=== PATIENT | female | born 1940 | race African-American/Black ===

== ENCOUNTER 2017-05-19 09:44 | Observation (INO) | payer MEDICARE ==
[~2017-05-19] VITALS: Ht 167.6 cm; Wt 99.8 kg
[~2017-05-19 09:44] MED LIST: ALLOPURINOL300 MG PO; ASPIRIN325 MG PO; CALCIUM600 MG PO; GLIPIZIDE ER5 MG PO; LEVOTHYROXINE75 MCG PO; LISINOPRIL-HCT1 EAC1 PO; LOMOTIL TABLET1 EACH; METOPROLOL TART25 MG PO; OMEPRAZOLE40 MG PO
[2017-05-19] MEDS ORDERED: TRADJENTA5 MG PO (11:57)
[2017-05-19] MEDS ORDERED: ASPIR 8181 MG PO (11:59)
[2017-05-19] MEDS ORDERED: FERROUS SULFAT324 MG PO (11:59)
[2017-05-19] MEDS ORDERED: SODIUM CHLORIDE FLUSH 10 ML SYR INJ PRN ×2 (12:00→14:15)
--- OUTSIDE RECORDS SUMMARY | 2017-05-19 13:10 | XMS REPORT | Continuity of Care Document ---
Author Author [facility] Organization [facility] Address [address] [place] [address] Phone Unavailable Care Team Providers Care Needle Valve Operator Name Role Phone ALEX MANN MD PCP Advance Directives Directive Response Recorded Date/Time Does the patient have an advance directive? No 08/10/15 10:45am If yes, is advance directive on file with [facility]? No 05/19/17 10:38am If not on file with [facility] will patient provide a copy? No 08/10/15 10:45am Do you have a Directive to Physician? No 05/19/17 10:38am Do you have a Medical Power of Head Doffer? No 05/19/17 10:38am Do you have an out of hospital Do Not Resuscitate Order? No 05/19/17 10:38am Do you have any special needs we should be aware of? No 05/19/17 10:38am Do you have a support person here with you today? No 05/19/17 10:38am Did patient receive Notice of Privacy Practices? Yes 05/19/17 10:38am Did patient receive patient rights and responsibilities? Yes 05/19/17 10:38am Problems Medical Problem Onset Date Status Atrial fibrillation Unknown Chest pain Unknown Medications Current Home Medications Medication Dose Units Route Directions Days Qty Instructions Start Date Allopurinol 300 Mg Tablet 300 Mg Oral Daily 30 Tab Aspirin (Aspir 81) 81 Mg Tablet. 81 Mg Oral Daily Ferrous Sulfate 324 Mg Tablet. Unknown Dose Glipizide (Glipizide Er) 5 Mg Tab.er.24 5 Mg Oral Daily Levothyroxine Sodium 75 Mcg Tablet 75 Mcg Oral Daily 30 Tab Linagliptin (Tradjenta) 5 Mg Tablet Lisinopril/Hydrochlorothiazide (Lisinopril-Hctz 20-25 Mg Tab) 1 Each Tablet 1 Tab Oral Daily Metoprolol Tartrate 25 Mg Tablet 25 Mg Oral Twice A Day Omeprazole 40 Mg Capsule. 40 Mg Oral Daily Past Home Medications Medication Directions Ordered Status Aspirin 325 Mg Tablet, 325 Mg Oral Daily Discontinued Calcium Carbonate (Calcium) 600 Mg Tablet, 600 Mg Oral Twice A Day Discontinued Diphenoxylate Hcl/Atropine (Lomotil Tablet) 1 Each Tablet, Every 8 Hours for Diarrhea Discontinued Social History Smoking Status Start Date Stop Date Never Smoker Hospital Discharge Instructions No hospital discharge instruction information available. Plan of Care Discharge Date 05/19/17 12:45pm Disposition ADMITTED Condition at Discharge Stable Forms Provided Work/School Excuse Prescriptions See Medication Section Functional Status No functional status information available. Allergies, Adverse Reactions, Alerts Allergen Type Severity Reaction Status Last Updated Penicillin Allergy Unknown ITCHING Active 05/19/17 Immunizations No immunization information available. Vital Signs Acute Vital Signs Vital Response Date/Time Temperature (Fahrenheit) 97.8 degrees F (97.6 - 99.5) 05/19/2017 12:58pm Pulse Pulse Rate (adult) 68 bpm (60 - 90) 05/19/2017 12:58pm Respiratory Rate 16 bpm (12 - 24) 05/19/2017 12:58pm Blood Pressure 130/68 mm Hg 05/19/2017 12:58pm Height 5 ft 6 in 05/19/2017 9:50am Weight 220 lb 05/19/2017 9:50am Body Mass Index 35.5 kg/m^2 05/19/2017 9:50am Results No relevant diagnostic test, laboratory data and/or discharge summary information available. Procedures No procedure information available. Encounters Encounter Location Arrival/Admit Date Discharge/Depart Date Attending Provider Departed Emergency Room [facility] 05/19/17 9:44am 12:45pm DAMON QUIROZ MD
[2017-05-19 13:19] VITALS: BP 165/89
[2017-05-19 13:28] VITALS: BP 165/89
[2017-05-19] MEDS ORDERED: TRIMETHOPRIM/SULFAMETHOXAZOLE 160-800 MG TAB PO SCH ×2 (14:00→21:00)
[2017-05-19] MEDS ORDERED: TRIMETHOPRIM/SULFAMETHOXAZOLE 160-800 MG TAB PO ONE (15:00)
[2017-05-19 16:01] VITALS: BP 133/67
[2017-05-19] MEDS ORDERED: METOPROLOL TARTRATE 25 MG TAB PO SCH (17:00)
[2017-05-19] MEDS ORDERED: BACTRIM DS TAB1 EACH PO (17:19)
--- NOTE | 2017-05-19 17:23 | Discharge Summary ---
FINAL DIAGNOSES 1. Non-cardiac chest pain. 2. Urinary tract infection. 3. Chronic atrial fibrillation. 4. Hypertension. 5. Diabetes. 6. Hypothyroidism. 7. Chronic anemia. 8. Gout. CONSULTANTS: None. PROCEDURES/STUDIES PERFORMED: None. HISTORY: Per H\T\P. HOSPITAL COURSE: Workup is negative for cardiac chest pain. It sounds very atypical. To me, it sounds like a musculoskeletal pain. In addition, the patient stated that she just had a recent stress test with Dr. Worrell about 4-5 months ago. Therefore, I am going to send her home today. The patient is in agreement. The patient does have urinary frequency with abnormal urinalysis. Will send her home on 5 days of Bactrim. Lastly, the patient does not want anticoagulation for her chronic atrial fibrillation. I had a long conversation with her and asked her to follow up with her high pressure operator about this again. Potentially, she may be a candidate for Watchman device. CONDITION ON DISCHARGE: Stable. DISCHARGE MEDICATIONS: Please see medication reconciliation form. MEHNAZ BARONE M.D. Job#: [id number] GH
[2017-05-20] MEDS ORDERED: LEVOTHYROXINE SODIUM 75 MCG TAB PO SCH (06:00)
[2017-05-20] MEDS ORDERED: GLIPIZIDE 5 MG TAB ER PO SCH (08:00)
[2017-05-20] MEDS ORDERED: ASPIRIN 81 MG CHEW TAB PO SCH (09:00)
[2017-05-20] MEDS ORDERED: ALLOPURINOL 300 MG TAB PO SCH (09:00)
[2017-05-20] MEDS ORDERED: LISINOPRIL 20 MG TAB PO SCH (09:00)
[2017-05-20] MEDS ORDERED: HYDROCHLOROTHIAZIDE 25 MG TAB PO SCH (09:00)
== END 2017-05-19 18:53 | disposition home or self-care (01) ==
LOC: FSED 09:44 → MED/SURG 12:45 → FSED 12:45 → MED/SURG 13:06 → INTOOBSV 13:06
PROVIDERS: ADMIT Internal Medicine; ATTEND Internal Medicine
DX: R07.89 Other chest pain (principal); I10 Essential (primary) hypertension; I48.2 Chronic atrial fibrillation; N39.0 Urinary tract infection, site not specified; E11.9 Type 2 diabetes mellitus without complications; E03.9 Hypothyroidism, unspecified; D64.9 Anemia, unspecified; M1A.00X0 Idiopathic chronic gout, unspecified site, without tophus (tophi); Z82.49 Family history of ischemic heart disease and other diseases of the circulatory system
CPT/HCPCS: 36415; 71046; 80053; 81003; 82553; 82948; 83880; 84484; 85025; 87086; 87186; 93005; 99284; G0378

== ENCOUNTER 2017-05-23 12:03 | Inpatient (IN) | payer MEDICARE ==
[~2017-05-23] VITALS: Ht 167.6 cm; Wt 102.1 kg
[~2017-05-23 12:03] MED LIST changes: +ASPIR 8181 MG PO; +BACTRIM DS TAB1 EACH PO; +FERROUS SULFAT324 MG PO; +TRADJENTA5 MG PO
--- OUTSIDE RECORDS SUMMARY | 2017-05-23 12:06 | XMS REPORT | Continuity of Care Document ---
Author Author [facility] Organization [facility] Address [address] [place] [address] Phone Unavailable Care Team Providers Care Offset Printer Name Role Phone ALEX MANN MD PCP Advance Directives Directive Response Recorded Date/Time Does the patient have an advance directive? No 05/19/17 1:36pm If yes, is advance directive on file with [facility]? No 05/19/17 1:36pm If not on file with [facility] will patient provide a copy? No 05/19/17 1:36pm Do you have a Directive to Physician? No 05/19/17 10:38am Do you have a Medical Power of Straightening Press Operator Helper? No 05/19/17 10:38am Do you have an [...] 40 Mg Capsule. 40 Mg Oral Daily Sulfamethoxazole/Trimethoprim (Bactrim Ds Tablet) 1 Each Tablet 1 Tab Oral Twice A Day 60 Tab Past Home Medications Medication Directions Ordered Status Aspirin 325 Mg Tablet, 325 Mg Oral Daily Discontinued Calcium Carbonate (Calcium) 600 Mg Tablet, 600 Mg Oral Twice A Day Discontinued Diphenoxylate Hcl/Atropine (Lomotil Tablet) 1 Each Tablet, Every 8 Hours for Diarrhea Discontinued Social History Social History Problem Response Recorded Date/Time Onset Date Status Hx Psychiatric Problems No 05/19/2017 1:36pm Not Applicable Not Applicable Hx Eating Disorder No 05/19/2017 1:36pm Not Applicable Not Applicable Hx Substance Use Disorder No 05/19/2017 1:36pm Not Applicable Not Applicable Hx Depression No 05/19/2017 1:36pm Not Applicable Not Applicable Hx Alcohol Use No 05/19/2017 1:36pm Not Applicable Not Applicable Hx Substance Use Treatment No 05/19/2017 1:36pm Not Applicable Not Applicable Hx Physical Abuse No 05/19/2017 1:36pm Not Applicable Not Applicable Smoking Status Start Date Stop Date Former smoker Hospital Discharge Instructions No hospital discharge instruction information available. Plan of Care Discharge Date 05/19/17 6:53pm Disposition HOME, SELF-CARE Instructions/Education Provided Chest Pain - Noncardiac Urinary Tract Infection - Women Prescriptions See Medication Section Additional Instructions/Education ACTIVITY TOLERATED TAKE ALL ANTIBIOTICS UNTIL COMPLETED AND F/U WITH PCP Functional Status Query Response Date Recorded Assistive Devices None May 19, 2017 1:28pm Ambulation Ability Independent May 19, 2017 1:28pm Toileting Ability Independent May 19, 2017 6:13pm Allergies, Adverse Reactions, Alerts Allergen Type Severity Reaction Status Last Updated Penicillin Allergy Unknown ITCHING Active 05/19/17 Immunizations No immunization information available. Vital Signs Acute Vital Signs Vital Response Date/Time Temperature (Fahrenheit) 96.6 degrees F (97.6 - 99.5) 05/19/2017 4:01pm Pulse Pulse Rate (adult) 71 bpm (60 - 90) 05/19/2017 4:01pm Respiratory Rate 18 bpm (12 - 24) 05/19/2017 4:01pm Blood Pressure 133/67 mm Hg 05/19/2017 4:01pm Height 5 ft 6 in 05/19/2017 9:50am Weight 220 lb 05/19/2017 9:50am Body Mass Index 35.5 kg/m^2 05/19/2017 1:36pm Results Laboratory Results Test Name Result Units Flags Reference Collection Date/Time Result Date/ Time Comments Bedside Glucose 83 mg/dL 70-120 05/19/2017 1:18pm 05/19/2017 1:25pm Meter ID: [id number] Procedures No procedure information available. Encounters Encounter Location Arrival/Admit Date Discharge/Depart Date Attending Provider Discharged Inpatient (obs) [facility] 05/19/17 1:06pm 6:53pm MEHNAZ BARONE MD
[2017-05-23] MEDS ORDERED: SODIUM CHLORIDE 0.9% 1000ML 500 ML IV ONE (13:45)
[2017-05-23] MEDS: SODIUM CHLORIDE 0.9% 1000ML 1,000 ML IV SCH ×4 (14:18→23:03)
[2017-05-23] MEDS ORDERED: SODIUM CHLORIDE 0.9% 1000ML 1,000 ML IV SCH (14:30)
[2017-05-23] MEDS ORDERED: SODIUM CHLORIDE FLUSH 10 ML SYR INJ PRN (14:30)
--- OUTSIDE RECORDS SUMMARY | 2017-05-23 16:49 | XMS REPORT | Continuity of Care Document ---
Author Author [facility] Organization [facility] Address [address] [place] [address] Phone Unavailable Care Team Providers Care Stakes Player Name Role Phone ALEX MANN MD PCP Advance Directives Directive Response Recorded Date/Time Does the patient have an advance directive? No 05/19/17 1:36pm If yes, is advance directive on file with [facility]? No 05/19/17 1:36pm If not on file with [facility] will patient provide a copy? No 05/19/17 1:36pm Do you have a Directive to Physician? No 05/23/17 1:03pm Do you have a Medical Power of Mastic Floor Layer? No 05/23/17 1:03pm Do you have an out of hospital Do Not Resuscitate Order? No 05/23/17 1:03pm Do you have any special needs we should be aware of? No 05/23/17 1:03pm Do you have a support person here with you today? Yes 05/23/17 1:03pm Did patient receive Notice of Privacy Practices? Yes 05/23/17 1:03pm Did patient receive patient rights and responsibilities? Yes 05/23/17 1:03pm Problems Medical Problem Onset Date Status Acute renal failure Unknown Atrial fibrillation Unknown Chest pain Unknown Medications [...] Applicable Smoking Status Start Date Stop Date Never Smoker Hospital Discharge Instructions No hospital discharge instruction information available. Plan of Care Discharge Date 05/23/17 4:28pm Disposition ADMITTED Condition at Discharge Stable Forms [...] 05/19/2017 4:01pm Height 5 ft 6 in 05/23/2017 12:31pm Weight 220 lb 05/23/2017 12:31pm Body Mass Index 35.5 kg/m^2 05/23/2017 12:31pm Results Laboratory Results Test Name Result Units Flags Reference Collection Date/Time Result Date/ Time Comments Bedside Glucose 83 mg/dL 70-120 05/19/2017 1:18pm 05/19/2017 1:25pm Meter ID: [id number] Microbiology Results Procedure Source Organism/Result Collection Date/Time Result Date/Time Result Status Urine Culture Urine,Clean Catch ESCHERICHIA COLI 05/19/2017 11:45am 2017 7:09am Final Procedures No procedure information available. Encounters Encounter Location Arrival/Admit Date Discharge/Depart Date Attending Provider Registered Emergency Room [facility] 05/23/17 12:03pm REKHA RUBIO MD Discharged Inpatient (obs) [facility] 05/19/17 1:06pm 6:53pm MEHNAZ BARONE MD
[2017-05-23 17:22] VITALS: BP 108/71
[2017-05-23 17:47] VITALS: BP 108/71
--- NOTE | 2017-05-23 18:44 | Diagnostic Imaging Report ---
PROCEDURE:US RETROPERITONEAL ( KIDNEY ). COMPARISON:None. INDICATIONS:ARF TECHNIQUE: Brooks-scale and color sonographic images of the bilateral kidneys and bladder were obtained in transverse and longitudinal planes. FINDINGS: RIGHT KIDNEY: Measures 8.9 cm in length Cysts: None Solid masses: None Stones: None Hydronephrosis: None Echogenicity: Increased LEFT KIDNEY: Measures 9.0 cm in length Cysts: None Solid masses: None Stones: None Hydronephrosis: None Echogenicity: Increased Bladder: Normal. Ureteral jets were not visualized. Survey images of the liver and spleen demonstrate no focal abnormality. CONCLUSION: Increased renal echotexture consistent with medical renal disease. No renal mass or hydronephrosis. Dictated by: Ellen Zaldivar M.D. on 05/23/2017 at 18:44 Electronically approved by: Ellen Zaldivar M.D. on 05/23/2017 at 18:44
--- NOTE | 2017-05-23 18:57 | History and Physical ---
HISTORY OF PRESENT ILLNESS: She is a 77-year-old female with past medical history positive for hypertension, diabetes and obesity who came here with burning on urination and dizziness. She was found to have acute urinary tract infection, acute renal failure and orthostatic hypotension admitted to the hospital. REVIEW OF SYSTEMS: CARDIOVASCULAR: No chest pain or palpitation. RESPIRATORY: No shortness of breath. No cough. GASTROINTESTINAL: No nausea, no vomiting and no diarrhea. GENITOURINARY: No frequency. She had dysuria. ALLERGIES: PENICILLIN, APPARENTLY SHE HAD ALLERGIC REACTION TO BACTRIM. SOCIAL HISTORY: She does not smoke and she does not drink. PAST MEDICAL HISTORY: Positive for hypertension, diabetes and obesity. PHYSICAL EXAMINATION: HEART: Irregularly irregular heart rate. No murmurs. No extra sounds. LUNGS: Clear bilaterally. ABDOMEN: Soft, nondistended, no tenderness, no visceromegaly. EXTREMITIES: Show no evidence of cyanosis, edema or trauma. FINAL IMPRESSION 1. Acute renal insufficiency. 2. Urinary tract infection. 3. Orthostatic hypotension. 4. Diabetes mellitus type 2. 5. History of hypertension. 6. Obesity. PLAN OF TREATMENT: We are going to continue with normal saline. We are going to continue monitoring blood sugar a.c. and nightly. Continue rest of home medications except for the lisinopril hydrochlorothiazide due to the acute renal insufficiency and orthostatic hypotension. Patient going to be on diabetic renal diet. Will also order a renal ultrasound to evaluate the kidney signs and looking for any evidence of any anatomic abnormality. The patient will be, as I said, admitted to the hospital. We are going to repeat a BMP tomorrow. Continue monitoring blood sugar a.c. and nightly. Continue current medication regimen. Job#: [id number]
[2017-05-23 20:00] VITALS: BP 93/53
[2017-05-23] MEDS ORDERED: DIPHENHYDRAMINE HCL 30 GM TUBE TOP PRN (20:30)
[2017-05-23 20:35] VITALS: BP 93/53
[2017-05-23] MEDS ORDERED: ACETAMINOPHEN 325 MG TAB PO PRN (20:45)
[2017-05-23] MEDS ORDERED: SODIUM CHLORIDE 0.9% 1000ML 1,000 ML ONE (23:03)
[2017-05-24 01:10] VITALS: BP 88/44
[2017-05-24] MEDS: SODIUM CHLORIDE 0.9% 1000ML 1,000 ML IV SCH ×5 (04:36→22:30)
[2017-05-24 04:57] VITALS: BP 70/38
[2017-05-24] MEDS: LEVOTHYROXINE SODIUM 75 MCG TAB PO SCH (05:33)
[2017-05-24 05:40] VITALS: BP 110/66
[2017-05-24] MEDS ORDERED: SODIUM CHLORIDE 0.9% 1000ML 1,000 ML ONE ×2 (05:59→13:47)
[2017-05-24 07:08] LABS: ANION GAP 9.6 mmol/L (8-16); CALCIUM 8.3 mg/dL (8.4-10.2); CREATININE, SERUM 2.34 mg/dL (0.57-1.11); POTASSIUM 3.6 mmol/L (3.5-5.1)
[2017-05-24 08:00] VITALS: BP 92/48
[2017-05-24] MEDS ORDERED: LEVOTHYROXINE SODIUM 75 MCG TAB PO SCH (09:00)
[2017-05-24] MEDS: METOPROLOL TARTRATE 25 MG TAB PO SCH ×2 (09:00→16:09)
[2017-05-24] MEDS: TRADJENTA 5 MG PO SCH (09:00)
[2017-05-24] MEDS ORDERED: GLIPIZIDE 5 MG TAB ER PO SCH (09:00)
[2017-05-24] MEDS ORDERED: NON-FORMULARY MEDICATION (Linagliptin (Tradjenta) 5 MG) PO SCH (09:00)
[2017-05-24] MEDS: ASPIRIN 81 MG CHEW TAB PO SCH (09:15)
[2017-05-24] MEDS: FERROUS SULFATE 325 MG TAB PO SCH (09:15)
[2017-05-24] MEDS: PANTOPRAZOLE SOD 40 MG TABEC PO SCH (09:16)
[2017-05-24] MEDS: ALLOPURINOL 300 MG TAB PO SCH (09:50)
[2017-05-24 12:00] VITALS: BP 94/46
[2017-05-24 15:36] LABS: EOSINOPHILS # (AUTO) 0.6 (0.0-0.4); EOSINOPHILS % 15.4 % (0.0-6.0); HEMATOCRIT 30.8 % (34.2-44.1); HEMOGLOBIN 10.4 g/dL (12.0-16.0); LYMPHOCYTES # (AUTO) 1.2 (1.0-3.2); LYMPHOCYTES % 33.6 % (18.0-39.1); MEAN CORPUSCULAR HGB CONC 33.8 g/dL (31-35); MEAN CORPUSCULAR VOLUME 91.9 fL (81-99); MONOCYTES # (AUTO) 0.4 (0.2-0.8); MONOCYTES % 10.6 % (4.4-11.3); NEUTROPHILS # (AUTO) 1.5 (2.1-6.9); NEUTROPHILS % 40.1 % (38.7-80.0); PLATELET COUNT 146 x10e3/uL (140-360); RED BLOOD COUNT 3.35 x10e6/uL (3.6-5.1); RED CELL DISTRIBUTION WIDTH 14.1 % (11.7-14.4)
[2017-05-24 16:40] LABS: HIV 1&2 AB SCREEN NON-REACTIVE (NONREACTIVE)
[2017-05-24 17:07] LABS: EOSINOPHILS % (MANUAL) 6 % (0-7); HYPOCHROMASIA SLIGHT; LYMPHOCYTES % (MANUAL) 19 % (19-48); METAMYELOCYTES % (MANUAL) 1 % (0-0); MONOCYTES % (MANUAL) 13 % (3.4-9.0); NEUTROPHILS % (MANUAL) 58 % (40-74); PLATELET ESTIMATE ADEQUATE; PLATELET MORPHOLOGY COMMENT NORMAL; RBC MORPHOLOGY COMMENT NORMAL; TOXIC GRANULATION MODERATE
[2017-05-24 17:27] LABS: BLOOD UREA NITROGEN 41 mg/dL (7-26); GLUCOSE 96 mg/dL (74-118); OSMOLALITY,SERUM 273 mOsm/kg (278-305); SODIUM 131 mmol/L (136-145)
--- NOTE | 2017-05-24 18:08 | Consultation ---
DATE OF CONSULTATION: May 24, 2017 NEPHROLOGY CONSULT REASON FOR THE CONSULT: Acute kidney injury. HISTORY OF PRESENT ILLNESS: This is a pleasant 77-year-old female who is known to have hypertension, diabetes on p.o. medications, and she is known to have hypothyroid and gout on allopurinol. She recently changed her insurance, and she went to a new doctor in the area, for which she was prescribed metoprolol. She recently has been having frequency with urine along with some dysuria and urgency. She went to an urgent care across the street, and they prescribed for her Bactrim 1 tablet twice a day, which she took for 3 days, and the [id number] said that the patient is becoming a little bit confused with that. So, they stopped the antibiotic. She is becoming dizzy and lightheaded with orthostasis; so, she came for further evaluation in the ER, in which her blood pressure was low in 70s/30s. The patient is being admitted. Blood pressure medications have been on hold, and we are consulted given creatinine was elevated. Today the patient is feeling fine. She has been on IV fluids and she is tolerating her diet and making some urine. VITAL SIGNS: Blood pressure 110/56, heart rate is 70, temperature is 97. PHYSICAL EXAMINATION GENERAL APPEARANCE: No acute distress x3. HEAD, EARS, EYES, NECK: No lymphadenopathy. HEART: Regular rate and rhythm. LUNGS: Good bilateral air entry. ABDOMEN: Soft. Nontender. EXTREMITIES: No edema. LABS: She had sodium 129, potassium 3.6, BUN is 44, creatinine is 2.34, and calcium is 8.3. Hemoglobin is 10.4. Ultrasound with increased echogenicity in bilateral kidneys. ASSESSMENT AND PLAN 1. Acute kidney injury. This could be suspected in the setting of urinary tract infection along with hypotension and decrease in blood pressure impacting renal perfusion. At this time keep IV fluids and rehydration. Check fraction excretion of sodium. Avoid any nephrotoxins. Monitor urine output. Also note that the patient has recently UTI and has been started on Bactrim, which could have led to more renal failure. So, I do not have the baseline for the kidney function. However, I am going to contact the new clinic that she moved to recently as the patient says that she had labs almost a couple of months ago to check her baseline kidney function at that time and monitor her kidney function. At this time keep IV fluids. No NSAIDs and no nephrotoxins. 2. Electrolytes. Potassium is okay. Sodium is 129. She is on isotonic IV fluids. Check TSH and check urine osmo and serum osmolality. 3. Hypotension. Patient recently started on metoprolol. She is being admitted with sepsis for UTI. We are going to hold lisinopril-hydrochlorothiazide given CATRACHO and monitor her blood pressure and vital signs and orthostasis. 4. Diabetes, borderline. She is on p.o. hypoglycemics by her primary team. 5. Urinary tract infection. Urine culture has been sent, and we are going to monitor closely off the Bactrim as it caused side effects for the patient. 6. Gout, on allopurinol. Check uric acid. 7. Hypothyroid, on levothyroxine. Check TSH. Thank you for the consult. Job#: [id number]
[2017-05-24 18:59] LABS: CREATININE,URINE RANDOM 38.94 mg/dL (47-110); SODIUM,URINE 86 mmol/L; TOTAL PROTEIN, URINE 10.1 mg/dL (1-14)
[2017-05-24 19:40] LABS: EOSINOPHIL SMEAR,URINE NONE SEEN (NONE SEEN)
[2017-05-24 20:00] VITALS: BP_SYST 112; BP_SYST 96; BP_DIAS 55; BP_DIAS 65
--- NOTE | 2017-05-24 20:13 | Progress Note ---
DATE: May 24, 2017 INTERNAL MEDICINE PROGRESS NOTE SUBJECTIVE: She is doing better today. PHYSICAL EXAM: VITAL SIGNS: Blood pressure 94/46, temperature 97 degrees. Heart rate 79 per minute. Respiratory rate 18 per minute. Oxygen saturation 99%. HEART: Regular rhythm. No murmurs and no extra sounds. LUNGS: Clear bilaterally. ABDOMEN: Soft. EXTREMITIES: Show no evidence of cyanosis, edema or trauma. On the BMP sodium 131, potassium 3.6, chloride 102, CO2 21, BUN 41, creatinine 2.34. Glucose 96. On the CBC white blood count 3.69, hemoglobin 10.4, hematocrit 30.8, platelet count 146,000. FINAL IMPRESSION: 1. Urinary tract infection. 2. Ojzxv-ds-pewagkk renal insufficiency. 3. Orthostatic hypotension. 4. Diabetes mellitus type 2 with chronic renal failure. 5. Hypertension with hypertensive nephropathy. 6. Obesity. PLAN OF TREATMENT: Continue with IV fluids at 140 mL an hour. Continue with allopurinol 300 mg daily. Aspirin 81 mg daily. Levothyroxine 75 mcg daily. Sodium bicarbonate 350 mg twice a day. Ferrous sulfate 325 mg daily. Continue Protonix 40 mg daily. Continue the Tylenol 650 mg q.4 h. as needed. Metoprolol 25 mg twice a day. Benadryl Cream, one application q.6 h. as needed. We are going to continue with Levaquin 250 mg IV daily. We are waiting on the report on the UA urine culture. Job#: [id number]
[2017-05-24] MEDS: LEVOFLOXACIN 250MG/D5W 50ML 50 ML IV SCH (22:30)
[2017-05-25] VITALS: BP 96/55
[2017-05-25] MEDS: SODIUM CHLORIDE 0.9% 1000ML 1,000 ML IV SCH ×3 (02:03→14:21)
[2017-05-25] MEDS: LEVOTHYROXINE SODIUM 75 MCG TAB PO SCH (05:39)
[2017-05-25 06:56] LABS: BASOPHILS % 0.3 % (0.0-1.0); EOSINOPHILS # (AUTO) 0.4 (0.0-0.4); EOSINOPHILS % 11.5 % (0.0-6.0); HEMATOCRIT 27.3 % (34.2-44.1); HEMOGLOBIN 9.1 g/dL (12.0-16.0); LYMPHOCYTES # (AUTO) 1.6 (1.0-3.2); LYMPHOCYTES % 42.4 % (18.0-39.1); MEAN CORPUSCULAR HEMOGLOBIN 31.2 pg (28-32); MEAN CORPUSCULAR HGB CONC 33.3 g/dL (31-35); MEAN CORPUSCULAR VOLUME 93.5 fL (81-99); MONOCYTES # (AUTO) 0.4 (0.2-0.8); MONOCYTES % 9.7 % (4.4-11.3); NEUTROPHILS # (AUTO) 1.4 (2.1-6.9); NEUTROPHILS % 35.6 % (38.7-80.0); PLATELET COUNT 138 x10e3/uL (140-360); RED BLOOD COUNT 2.92 x10e6/uL (3.6-5.1)
[2017-05-25 07:23] LABS: CALCIUM 8.4 mg/dL (8.4-10.2); CREATININE, SERUM 1.43 mg/dL (0.57-1.11); PHOSPHORUS 2.9 MG/DL (2.3-4.7)
[2017-05-25 07:39] LABS: MAGNESIUM 1.3 MG/DL (1.3-2.1)
[2017-05-25 08:00] VITALS: BP 116/60
[2017-05-25 08:28] LABS: BAND NEUTROPHILS % (MANUAL) 3 %; BLAST CELLS % MANUAL 3; EOSINOPHILS % (MANUAL) 15 % (0-7); LYMPHOCYTES % (MANUAL) 28 % (19-48); MONOCYTES % (MANUAL) 13 % (3.4-9.0); NEUTROPHILS % (MANUAL) 33 % (40-74)
[2017-05-25 08:29] LABS: ANISOCYTOSIS SLIGHT; HYPOCHROMASIA SLIGHT; PLATELET ESTIMATE SLIGHTLY DECREASED; PLATELET MORPHOLOGY COMMENT MANY LARGE; RBC MORPHOLOGY COMMENT NORMAL
[2017-05-25 08:45] VITALS: BP 116/60
[2017-05-25] MEDS: TRADJENTA 5 MG PO SCH (09:00)
[2017-05-25] MEDS: METOPROLOL TARTRATE 25 MG TAB PO SCH ×2 (09:00→16:41)
[2017-05-25] MEDS: PANTOPRAZOLE SOD 40 MG TABEC PO SCH (09:11)
[2017-05-25] MEDS: ASPIRIN 81 MG CHEW TAB PO SCH (09:11)
[2017-05-25] MEDS: ALLOPURINOL 300 MG TAB PO SCH (09:11)
[2017-05-25] MEDS: SODIUM BICARBONATE 650 MG TAB PO SCH ×2 (09:11→16:40)
[2017-05-25] MEDS: FERROUS SULFATE 325 MG TAB PO SCH (09:11)
[2017-05-25 12:00] VITALS: BP 114/70
[2017-05-25 16:00] VITALS: BP 120/75
[2017-05-25] MEDS: LEVOFLOXACIN 250MG/D5W 50ML 50 ML IV SCH (20:21)
--- NOTE | 2017-05-26 05:48 | Discharge Summary ---
HOSPITAL COURSE: A 77-year-old female, past medical history positive for hypertension, diabetes, hypothyroidism, gout also. She was having frequency on urination with some burning urination, went to a nursing care. She was prescribed Bactrim. She was becoming confused. She started on antibiotics. She was dizzy and lightheaded with orthostatics, came for further evaluation in the ER. The blood pressure was in the low 70s and 30s. She was admitted to the hospital. So far, patient was started on Levaquin IV, IV fluids. The blood pressure is much better right now. Patient's urine culture is negative. BUN and creatinine were elevated, now they are down to 32 of BUN and creatinine 1.43. Patient's asymptomatic, working around the facility. She is going home tomorrow. PHYSICAL EXAM HEART: Regular rhythm. Normal S1, S2 sounds. LUNGS: Clear bilaterally. ABDOMEN: Soft. EXTREMITIES: No evidence of cyanosis or trauma. VITALS: Blood pressure 121/75, temperature 96.7, heart rate 67 per minute, respiratory rate is 18 per minute. On the BMP, sodium 136, potassium 4.0, chloride 108, CO2 22, BUN 32, creatinine 1.43. Glucose 73. On the CBC, white blood count 3.82, hemoglobin 9.1, hematocrit 27.3, platelet count 138,000. IMPRESSIONS 1. Orthostatic hypotension. 2. Urinary tract infection. 3. Acnai-ph-pzwmdoq renal insufficiency. 4. Status post hypotension. 5. Hypothyroidism. 6. Obesity. 7. Hypertensive nephropathy. PLAN OF TREATMENT: Patient going to be discharged home with 1. Allopurinol 300 mg daily. 2. Metoprolol 25 mg twice a day. 3. Aspirin 81 mg daily. 4. Levothyroxine 75 mcg daily. 5. Ferrous sulfate 325 mg daily. 6. Protonix 40 mg daily. 7. Tylenol 650 mg q.4 h as needed. Follow up with me in a week. KAYA GORMAN MD Job#: [id number] CQ
[2017-05-26] MEDS: LEVOTHYROXINE SODIUM 75 MCG TAB PO SCH (06:13)
[2017-05-26 06:15] VITALS: BP 120/75
[2017-05-26 07:19] LABS: CALCIUM 8.6 mg/dL (8.4-10.2); CREATININE, SERUM 1.11 mg/dL (0.57-1.11); PHOSPHORUS 2.9 MG/DL (2.3-4.7)
[2017-05-26 07:52] LABS: MAGNESIUM 1.1 MG/DL (1.3-2.1)
[2017-05-26 08:00] VITALS: BP 108/55
[2017-05-26] MEDS: METOPROLOL TARTRATE 25 MG TAB PO SCH (08:40)
[2017-05-26] MEDS: TRADJENTA 5 MG PO SCH (09:00)
[2017-05-26] MEDS: MAGNESIUM SULF 1GRAM/DEXTROSE 100 ML IV SCH ×4 (09:00→11:30)
[2017-05-26] MEDS: ASPIRIN 81 MG CHEW TAB PO SCH (11:09)
[2017-05-26] MEDS: FERROUS SULFATE 325 MG TAB PO SCH (11:09)
[2017-05-26] MEDS: PANTOPRAZOLE SOD 40 MG TABEC PO SCH (11:09)
[2017-05-26] MEDS: ALLOPURINOL 300 MG TAB PO SCH (11:09)
[2017-05-26 12:00] VITALS: BP 126/76
[2017-05-26 16:00] VITALS: BP 164/90
[2017-05-26] MEDS ORDERED: METOPROLOL TARTRATE 25 MG TAB PO SCH (17:00)
--- NOTE | 2017-05-26 21:10 | Discharge Summary ---
HISTORY OF PRESENT ILLNESS: Patient is a 77-year-old female, past medical history positive for hypertension diabetes came here with acute renal insufficiency and possible UTI. He received a course of IV antibiotic, IV fluids. BUN and creatinine improved. She was found to have also hypomagnesemia. The magnesium was replaced. Magnesium level followup was 2.2. Magnesium level was 1.1 before the magnesium replacement, so 2.2 is back to normal. Patient going home today. FINAL IMPRESSIONS 1. Acute renal failure and chronic renal failure. 2. Urinary tract infection. 3. Hypertension. 4. Diabetes mellitus, type 2, with renal insufficiency. Patient going home today with the medication. KAYA GORMAN MD Job#: [id number] CQ
== END 2017-05-26 17:43 | disposition left against medical advice (07) | DRG 872 ==
LOC: ER 12:03 → FSED 16:28 → MED/SURG2 16:46
PROVIDERS: ADMIT Internal Medicine; ATTEND Internal Medicine
DX: A41.9 Sepsis, unspecified organism (principal); N17.9 Acute kidney failure, unspecified; N39.0 Urinary tract infection, site not specified; E11.22 Type 2 diabetes mellitus with diabetic chronic kidney disease; I12.9 Hypertensive chronic kidney disease with stage 1 through stage 4 chronic kidney disease, or unspecified chronic kidney disease; N18.9 Chronic kidney disease, unspecified; E03.9 Hypothyroidism, unspecified; R35.0 Frequency of micturition; E87.6 Hypokalemia; R65.20 Severe sepsis without septic shock; M10.9 Gout, unspecified; E66.9 Obesity, unspecified; Z68.36 Body mass index [BMI] 36.0-36.9, adult; Z87.891 Personal history of nicotine dependence; Z79.52 Long term (current) use of systemic steroids
CPT/HCPCS: 36415; 76770; 80048; 81015; 82533; 82570; 82947; 82948; 83735; 83935; 84100; 84156; 84295; 84300; 84443; 84520; 84550; 85025; 87086; 87390; 99283; G0433; G0435; J1956; J3475; J7030

== ENCOUNTER 2018-09-14 10:57 | Emergency (ER) | payer MEDICARE ==
[~2018-09-14] VITALS: Ht 167.6 cm; Wt 106.4 kg
--- OUTSIDE RECORDS SUMMARY | 2018-09-14 11:01 | XMS REPORT ---
Author Author [facility] Address Unknown Phone Unavailable Care Team Providers Care Green Building Energy Engineer Name Role Phone KAYA GORMAN Unavailable Unavailable Problems This patient has no known problems. Allergies, Adverse Reactions, Alerts This patient has no known allergies or adverse reactions. Medications This patient has no known medications. Results Test Description Test Time Test Comments Text Results Atomic Results Result Comments US RENAL RETROPERITONEAL COMP [place] [address] Patient Name: JULIUS ULLOA MR #: [id number] : 1940 Age/Sex: 77/F Req #: [id number] [facility] Physician: KAYA GORMAN MD Ordered by: REKHA RUBIO MD Report #: [id number] Location: MED/SURG2 Room/Bed: [facility] Procedure: [id number] US/US RENAL RETROPERITONEAL COMP Exam Date: 05/23/17 Exam Time: 1741 REPORT STATUS: Signed PROCEDURE: US RETROPERITONEAL ( KIDNEY ). COMPARISON: None. INDICATIONS: ARF TECHNIQUE: Brooks-scale and color sonographic images of the bilateral kidneys and bladder were obtained in transverse and longitudinal planes. FINDINGS: RIGHT KIDNEY: Measures 8.9 cm in length Cysts: None Solid masses: None Stones: None Hydronephrosis: None Echogenicity: Increased LEFT KIDNEY: Measures 9.0 cm in length Cysts: None Solid masses: None Stones: None Hydronephrosis: None Echogenicity: Increased Bladder: Normal. Ureteral jets were not visualized. Survey images of the liver and spleen demonstrate no focal abnormality. CONCLUSION: Increased renal echotexture consistent with medical renal disease. No renal mass or h ydronephrosis. Dictated by: Antoine Zaldivar M.D. on 05/23/2017 at 18:44 Electronically approved by: Antoine Zaldivar M.D. on 05/23/2017 at 18:44 Dictated By: ANTOINE ZALDIVAR MD 43 Transcribed By: MARKUS on 05/23/171843 COPY TO: REKHA RUBIO MD
--- NOTE | 2018-09-14 12:28 | Diagnostic Imaging Report ---
EXAMINATION: CXR 2 VIEW - HOPD INDICATION: Fall COMPARISON: None FINDINGS: TUBES and LINES: None. LUNGS: Lungs are well inflated. No focal consolidation or pulmonary edema. Rounded density overlying the right lung apex likely represents a gown snap. PLEURA: No pleural effusion or pneumothorax. HEART AND MEDIASTINUM: The heart is enlarged. Atherosclerotic calcifications of the thoracic aorta. BONES AND SOFT TISSUES: No acute fracture or dislocation. UPPER ABDOMEN: No free air under the diaphragm. IMPRESSION: No focal pneumonia or pulmonary edema. Cardiomegaly. Signed by: Marky Dumont MD on 09/14/2018 12:25 PM
[2018-09-14 13:16] VITALS: BP 137/81
== END 2018-09-14 13:10 | disposition home or self-care (01) ==
LOC: FSED 10:57
DX: R10.12 Left upper quadrant pain (principal); D63.1 Anemia in chronic kidney disease; I10 Essential (primary) hypertension; E11.9 Type 2 diabetes mellitus without complications; I48.91 Unspecified atrial fibrillation; E03.9 Hypothyroidism, unspecified; M10.9 Gout, unspecified
CPT/HCPCS: 71046; 80048; 80076; 81003; 82553; 84484; 85025; 93005; 99283

== ENCOUNTER 2019-11-26 02:33 | Emergency (ER) | payer MEDICARE ==
[~2019-11-26] VITALS: Ht 167.6 cm; Wt 106.1 kg
--- NOTE | 2019-11-26 03:05 | Emergency Department Note ---
History of Present Illnes History of Present Illness Chief Complaint: General Medicine Complaints History of Present Illness This is a 79 year old female Chief Complaint Comment 79 Y/O FEMALE PT AAOX3 PRESENTS TO ED WITH REPORT OF PAIN TO RIGHT SHOULDER X2 DAYS. Arrival Mode: Car Budget Consultant Required: No Onset (how long ago): day(s) (2) Location: R posterior shoulder Quality: Dull Radiation: Reports non-radiation Severity: mild Onset quality: gradual Duration (how long): day(s) (2) Timing of current episode: constant Progression: unchanged Chronicity: new Context: Denies recent illness, Denies recent surgery Relieving factors: none Exacerbating factors: none Associated symptoms: Reports denies other symptoms Treatments prior to arrival: none Past Medical/Family History Physician Review I have reviewed the patient's past medical and family history. Any updates have been documented here. Past Medical History Recent Fever: No Clinical Suspicion of Infectio: No New/Unexplained Change in Ment: No Past Medical History: Hypertension, Hypothyroidism, Hyperlipedemia Other Medical History: GOUT Past Surgical History: Hysterectomy Social History Smoking Cessation: Never Smoker Counseling Performed: No Alcohol Use: None Any Illegal Drug Use: No Other Last Tetanus: UP TO DATE Any Pre-Existing Lines (PICC,: No Review of Systems Review of Systems Constitutional: Reports no symptoms EENTM: Reports no symptoms Cardiovascular: Reports no symptoms Respiratory: Reports no symptoms Gastrointestinal: Reports no symptoms Genitourinary: Reports no symptoms Musculoskeletal: Reports as per HPI, Reports other (R posterior shoulder pain) Integumentary: Reports no symptoms Neurological: Reports no symptoms Psychological: Reports no symptoms Endocrine: Reports no symptoms Hematological/Lymphatic: Reports no symptoms Physical Exam Related Data Allergies: Coded Allergies: Penicillins (Verified Allergy, Unknown, ITCHING, 05/19/17) Triage Vital Signs Vital Signs Date Time Temp Pulse Resp B/P (MAP) Pulse Ox O2 Delivery O2 Flow Rate FiO2 11/26/19 02:42 98.6 64 17 153/91 98 Room Air Vital signs reviewed: Yes Physical Exam CONSTITUTIONAL Constitutional: Present well-developed, Present well-nourished HENT HENT: Present normocephalic, Present atraumatic, Present oropharynx clear/moist, Present nose normal HENT L/R: Present left ext ear normal, Present right ext ear normal EYES Eyes: Reports PERRL, Reports conjunctivae normal NECK Neck: Present ROM normal PULMONARY Pulmonary: Present effort normal, Present breath sounds normal CARDIOVASCULAR Cardiovascular: Present regular rhythm, Present heart sounds normal, Present capillary refill normal, Present normal rate GASTROINTESTINAL Abdominal: Present soft, Present nontender, Present bowel sounds normal GENITOURINARY Genitourinary: Present exam deferred SKIN Skin: Present warm, Present dry MUSCULOSKELETAL Musculoskeletal: Present ROM normal, Present tenderness (R posterior shoulder) NEUROLOGICAL Neurological: Present alert, Present oriented x 3, Present no gross motor or sensory deficits PSYCHOLOGICAL Psychological: Present mood/affect normal, Present judgement normal Results Laboratory Lab results reviewed: Yes Imaging Imaging results reviewed: Yes Diagnostics Tests Diagnostic test(s) reviewed: Yes Procedures 12 Lead ECG Interpretation ECG Interpretation : Budget Consultant: Interpreted by ED physician Date: Nov 26, 2019 Prior ECG tracings: reviewed Rhythm: atrial fibrillation Rate: normal BPM: 55 QRS axis: left Conduction: left bundle branch block ST segments normal: Yes T waves normal: Yes Clinical Impression: abnormal ECG Assessment & Plan Medical Decision Making MDM 79-year-old female presents for right posterior shoulder pain which is ongoing for 2 days. She denies chest pain. Examination shows an overall well-appearing female in no acute distress, vital signs stable, with an occipital limits. Range of motion of the right shoulder is normal and her bilateral upper extremities are neurovascularly intact. She does have some point tenderness to the posterior right shoulder. Troponin workup is unremarkable and x-rays are also unremarkable. Discussed results with patient and she was given lidocaine patch. She has some lidocaine cream at home which she will use. Should follow up with her primary doctor or return to emergency department for any new or worsening symptoms. Patient's appropriate for discharge. Reassessment Reassessment time: 04:46 Reassessment Well appearing, NAD Assessment & Plan Final Impression: (1) Shoulder pain Depart Disposition: HOME, SELF-CARE Last Vital Signs Date Time Temp Pulse Resp B/P (MAP) Pulse Ox O2 Delivery O2 Flow Rate FiO2 11/26/19 02:42 98.6 64 17 153/91 98 Room Air Home Meds Reported Medications Ferrous Sulfate (FERROUS SULFATE) 324 Mg Tablet.dr, 325 MG PO DAILY 05/19/17 Aspirin (ASPIR 81) 81 Mg Tablet.dr, 81 MG PO DAILY 05/19/17 Linagliptin (TRADJENTA) 5 Mg Tablet, 5 MG PO DAILY 3/15/18 Levothyroxine Sodium (LEVOTHYROXINE SODIUM) 75 Mcg Tablet, 75 MCG PO DAILY, #30 TAB 08/10/15 Metoprolol Tartrate (METOPROLOL TARTRATE) 25 Mg Tablet, 25 MG PO BID, TAB 08/10/15 Allopurinol (ALLOPURINOL) 300 Mg Tablet, 300 MG PO DAILY, #30 TAB 08/10/15 SAM PEACE MD Nov 26, 2019 03:05
--- NOTE | 2019-11-26 03:07 | NUR ---
ekg given to md for review
[2019-11-26 03:09] LABS: BASOPHILS # (AUTO) 0.1 (0.0-0.1); BASOPHILS % 0.4 % (0.0-1.0); EOSINOPHILS # (AUTO) 0.2 (0.0-0.4); EOSINOPHILS % 1.1 % (0.0-6.0); HEMATOCRIT 33.9 % (34.2-44.1); HEMOGLOBIN 10.9 g/dL (12.0-16.0); LYMPHOCYTES # (AUTO) 1.7 (1.0-3.2); MEAN CORPUSCULAR HEMOGLOBIN 29.3 pg (28-32); MEAN CORPUSCULAR HGB CONC 32.2 g/dL (31-35); MEAN CORPUSCULAR VOLUME 91.1 fL (81-99); MONOCYTES % 7.4 % (4.4-11.3); NEUTROPHILS % 78.7 % (38.7-80.0); PLATELET COUNT 292 x10e3/uL (140-360); RED BLOOD COUNT 3.72 x10e6/uL (3.6-5.1); RED CELL DISTRIBUTION WIDTH 14.1 % (11.7-14.4)
[2019-11-26 03:26] LABS: ALBUMIN 3.8 g/dL (3.5-5.0); ALBUMIN/GLOBULIN RATIO 0.9 (0.8-2.0); ANION GAP 10.6 mmol/L (8-16); CALCIUM 9.1 mg/dL (8.4-10.2); CREATININE, SERUM 1.43 mg/dL (0.57-1.11); POTASSIUM 3.6 mmol/L (3.5-5.1)
[2019-11-26 03:51] LABS: CREATINE KINASE MB 1.3 ng/mL (0-5.0)
[2019-11-26] MEDS ORDERED: LIDOCAINE 4% PATCH TP STA (04:32)
--- NOTE | 2019-11-26 04:43 | Diagnostic Imaging Report ---
EXAMINATION: CHEST 2 VIEWS INDICATION: RIGHT SHOULDER PAIN COMPARISON: Radiograph dated 09/14/2018. FINDINGS: LUNGS: Normal lung volumes. Lungs are clear. No consolidations. PLEURA: No pleural effusion or pneumothorax. HEART AND MEDIASTINUM: Heart is mildly enlarged. BONES AND SOFT TISSUES: No acute osseous lesion. Soft tissues are unremarkable. UPPER ABDOMEN: No free air under the diaphragm. IMPRESSION: Mild cardiomegaly. No edema. Signed by: Arturo Lopez MD on 11/26/2019 4:40 AM
--- NOTE | 2019-11-26 05:20 | Diagnostic Imaging Report ---
X-ray right shoulder. 2 views. HISTORY: Pain. COMPARISON: None available. FINDINGS: Bones: Age-indeterminate Hill-Sachs impaction fracture. Joints: Osteoarthrosis of the acromioclavicular joint. IMPRESSION: Age-indeterminate Hill-Sachs impaction fracture of the humeral head. Osseous glenoid appears intact. Correlate for history of trauma/shoulder dislocation. Signed by: Arturo Lopez MD on 11/26/2019 5:17 AM
== END 2019-11-26 05:51 | disposition home or self-care (01) ==
LOC: ER 03:03
DX: M25.511 Pain in right shoulder (principal); E78.5 Hyperlipidemia, unspecified; I10 Essential (primary) hypertension; M10.9 Gout, unspecified; E03.9 Hypothyroidism, unspecified
CPT/HCPCS: 36415; 71046; 80053; 82550; 82553; 84484; 85025; 99284

== ENCOUNTER 2020-10-09 12:15 | Emergency (ER) | payer MEDICARE, OTHER ==
[~2020-10-09] VITALS: Ht 167.6 cm; Wt 106.1 kg
[2020-10-09] MEDS ORDERED: ACETAMINOPHEN/CODEINE 300MG - 30MG TAB PO ONE (13:00)
== END 2020-10-09 14:35 | disposition home or self-care (01) ==
LOC: ER 12:29
DX: M25.562 Pain in left knee (principal); M23.92 Unspecified internal derangement of left knee; W01.0XXA Fall on same level from slipping, tripping and stumbling without subsequent striking against object, initial encounter; Y93.01 Activity, walking, marching and hiking; Y92.008 Other place in unspecified non-institutional (private) residence as the place of occurrence of the external cause; I10 Essential (primary) hypertension; E78.5 Hyperlipidemia, unspecified; E03.9 Hypothyroidism, unspecified
CPT/HCPCS: 99283

== ENCOUNTER 2023-12-03 04:18 | Emergency (ER) | payer MEDICARE ==
[~2023-12-03] VITALS: Ht 167.6 cm; Wt 106.1 kg
[2023-12-03 04:20] VITALS: PULSE 66; RESP 18; TEMP 98.6
[2023-12-03] MEDS ORDERED: ONDANSETRON HCL 4 MG ORAL DISINTEGRATING TAB ONE (04:41)
[2023-12-03] MEDS: ONDANSETRON HCL 4 MG ORAL DISINTEGRATING TAB PO ONE (04:55)
[2023-12-03] MEDS ORDERED: ONDANSETRON ODT4 MG PO (05:08)
[2023-12-03 05:36] VITALS: BP 154/63; PULSE 84; RESP 18; TEMP 98.6; O2SAT 98
== END 2023-12-03 05:29 | disposition home or self-care (01) ==
LOC: FSED 04:21
DX: R11.2 Nausea with vomiting, unspecified (principal); R19.7 Diarrhea, unspecified; I10 Essential (primary) hypertension; E78.5 Hyperlipidemia, unspecified; E03.9 Hypothyroidism, unspecified; M10.9 Gout, unspecified; R94.31 Abnormal electrocardiogram [ECG] [EKG]
CPT/HCPCS: 99283; Q0162; 93005

== ENCOUNTER 2024-06-27 09:36 | Emergency (ER) | payer MEDICARE ==
[~2024-06-27] VITALS: Ht 167.6 cm; Wt 84.8 kg
[~2024-06-27 09:36] MED LIST changes: +ONDANSETRON ODT4 MG PO
[2024-06-27 09:53] VITALS: TEMP 97.7
[2024-06-27] MEDS ORDERED: LOVASTATIN20 MG PO (09:58)
[2024-06-27] MEDS ORDERED: VALACYCLOVIR500 MG PO (09:58)
[2024-06-27] MEDS ORDERED: GLIPIZIDE ER2.5 MG PO (09:58)
[2024-06-27] MEDS ORDERED: SODIUM CHLORIDE 0.9% 1000ML 1,000 ML IV SCH (10:00)
[2024-06-27 10:03] LABS: BASOPHILS % 0.2 % (0.0-1.0); EOSINOPHILS % 0.2 % (0.0-6.0); HEMATOCRIT 32.9 % (34.2-44.1); HEMOGLOBIN 10.7 g/dL (12.0-16.0); LYMPHOCYTES # (AUTO) 0.7 (1.0-3.2); LYMPHOCYTES % 10.5 % (18.0-39.1); MEAN CORPUSCULAR HGB CONC 32.5 g/dL (31-35); MEAN CORPUSCULAR VOLUME 101.5 fL (81-99); MONOCYTES # (AUTO) 0.7 (0.2-0.8); MONOCYTES % 10.6 % (4.4-11.3); NEUTROPHILS % 78.3 % (38.7-80.0); PLATELET COUNT 214 x10e3/uL (140-360); RED BLOOD COUNT 3.24 x10e6/uL (3.6-5.1); RED CELL DISTRIBUTION WIDTH 14.9 % (11.7-14.4); WHITE BLOOD COUNT 6.39 x10e3/uL (4.8-10.8)
[2024-06-27] MEDS: ONDANSETRON HCL INJ 2MG/ML 2ML 2 MG/ML VIAL IV STA (10:18)
[2024-06-27] MEDS: DICYCLOMINE HCL 20 MG/2 ML VIAL IM ONE (10:20)
[2024-06-27] MEDS: LIDOCAINE VISC 2% SOLN 15 ML UDC PO ONE (10:22)
[2024-06-27] MEDS: MAGNESIUM/ALUMINUM/SIMETHICONE 30 ML UDC PO ONE (10:22)
[2024-06-27] MEDS: BELLADONNA ALK/PHENOBARBITAL 5 ML UDC PO STA (10:23)
[2024-06-27 10:37] LABS: ALBUMIN 3.4 g/dL (3.5-5.0); ALBUMIN/GLOBULIN RATIO 0.7 (0.8-2.0); ANION GAP 15.9 mmol/L (8-16); BILIRUBIN,TOTAL 0.5 mg/dL (0.2-1.2); CALCIUM 8.9 mg/dL (8.4-10.2); CREATININE, SERUM 1.49 mg/dL (0.57-1.11); POTASSIUM 3.9 mmol/L (3.5-5.1); TOTAL PROTEIN 8.5 g/dL (6.5-8.1)
[2024-06-27 10:42] LABS: TROPONIN I 0.03 ng/mL (0-0.300)
[2024-06-27] MEDS: SODIUM CHLORIDE 0.9% 1000ML 1,000 ML IV SCH (11:27)
[2024-06-27 12:52] VITALS: PULSE 75; RESP 18
[2024-06-27] MEDS ORDERED: DICYCLOMINE HCL20 MG PO (12:56)
[2024-06-27] MEDS ORDERED: ONDANSETRON ODT4 MG PO (12:57)
[2024-06-27 13:31] VITALS: BP 101/60; PULSE 65; RESP 17; O2SAT 100
[2024-06-27] MEDS ORDERED: IOPAMIDOL 370 MG/ML 100 ML INFUS..BTL INJ ONE (13:59)
== END 2024-06-27 13:33 | disposition home or self-care (01) ==
LOC: ER 09:55
DX: R10.13 Epigastric pain (principal); K52.9 Noninfective gastroenteritis and colitis, unspecified; K80.20 Calculus of gallbladder without cholecystitis without obstruction; K57.90 Diverticulosis of intestine, part unspecified, without perforation or abscess without bleeding; I42.9 Cardiomyopathy, unspecified; R94.31 Abnormal electrocardiogram [ECG] [EKG]
CPT/HCPCS: 36415; 74177; 80053; 83690; 84484; 85025; 93005; 99284; J0500; J2405; J2470; J7030; Q9967

== ENCOUNTER → 2024-08-15 | Outpatient (REF) | payer MEDICARE ==
[~2024-08-15] MED LIST changes: +DICYCLOMINE HCL20 MG PO; +GLIPIZIDE ER2.5 MG PO; +LOVASTATIN20 MG PO; +VALACYCLOVIR500 MG PO
== END ==
LOC: RAD 09:13
PROVIDERS: ATTEND Family Medicine
DX: M17.9 Osteoarthritis of knee, unspecified (principal)

== ENCOUNTER 2024-09-24 08:49 | Emergency (ER) | payer MEDICARE ==
[~2024-09-24] VITALS: Ht 167.6 cm; Wt 84.8 kg
[2024-09-24 10:00] LABS: BASOPHILS % 0.7 % (0.0-1.0); EOSINOPHILS % 2.0 % (0.0-6.0); LYMPHOCYTES % 15.1 % (18.0-39.1); MONOCYTES % 7.6 % (4.4-11.3); NEUTROPHILS % 74.3 % (38.7-80.0); RED CELL DISTRIBUTION WIDTH 15.1 % (11.7-14.4)
[2024-09-24 10:28] LABS: INR 0.95
[2024-09-24 10:38] LABS: EST GLOMERULAR FILTRATION RATE 40.0 ML/MIN (>=60)
[2024-09-24] MEDS ORDERED: ONDANSETRON HCL INJ 2MG/ML 2ML 2 MG/ML VIAL ONE (11:46)
[2024-09-24] MEDS ORDERED: SODIUM CHLORIDE 0.9% 1000ML 1,000 ML ONE (11:46)
[2024-09-24] MEDS: SODIUM CHLORIDE 0.9% 1000ML 1,000 ML IV STA (11:49)
[2024-09-24] MEDS: ONDANSETRON HCL INJ 2MG/ML 2ML 2 MG/ML VIAL IV STA (11:49)
[2024-09-24 13:46] LABS: LEUKOCYTE ESTERASE ,URINE TRACE (NEGATIVE); PROTEIN,URINE DIPSTICK NEGATIVE (NEGATIVE); URINE UROBILINOGEN 0.2 mg/dL (0.2 - 1)
[2024-09-24 13:57] LABS: EPITHELIAL CELLS,URINE MODERATE /LPF; WBC,URINE (MAN) 0-5 /HPF (0-5)
[2024-09-24 14:00] VITALS: PULSE 71; RESP 15; TEMP 98.5
[2024-09-24] MEDS ORDERED: DICYCLOMINE HCL10 MG PO (14:17)
[2024-09-24 14:41] VITALS: BP 147/52; PULSE 70; RESP 18; TEMP 98.2; O2SAT 98
== END 2024-09-24 14:43 | disposition home or self-care (01) ==
LOC: ER 09:00
DX: I48.20 Chronic atrial fibrillation, unspecified (principal); R94.5 Abnormal results of liver function studies; K80.20 Calculus of gallbladder without cholecystitis without obstruction; R11.2 Nausea with vomiting, unspecified; I10 Essential (primary) hypertension; E11.9 Type 2 diabetes mellitus without complications; I48.91 Unspecified atrial fibrillation; E78.5 Hyperlipidemia, unspecified; E03.9 Hypothyroidism, unspecified; M10.9 Gout, unspecified; R94.31 Abnormal electrocardiogram [ECG] [EKG]
CPT/HCPCS: 36415; 71045; 76705; 80053; 81001; 83690; 83735; 83880; 84443; 84484; 85025; 85610; 85730; 93005; 99284; J2405; J2470; J7030

== ENCOUNTER 2024-09-30 07:08 | Inpatient (IN) | payer MEDICARE ==
[~2024-09-30] VITALS: Ht 167.6 cm; Wt 84.8 kg
[2024-09-30] VITALS (7 sets, daily range): BP systolic 105–135; BP diastolic 59–92; PULSE 65–84; RESP 18; TEMP 96.9–97.8; O2SAT 98–100
[~2024-09-30 07:08] MED LIST changes: +DICYCLOMINE HCL10 MG PO
[2024-09-30 07:49] LABS: BASOPHILS % 0.2 % (0.0-1.0); EOSINOPHILS % 0.1 % (0.0-6.0); LYMPHOCYTES % 4.5 % (18.0-39.1); MONOCYTES % 5.0 % (4.4-11.3); NEUTROPHILS % 89.8 % (38.7-80.0); RED CELL DISTRIBUTION WIDTH 15.5 % (11.7-14.4)
[2024-09-30] MEDS: SODIUM CHLORIDE 0.9% 1000ML 1,000 ML IV STA (07:49)
[2024-09-30] MEDS: ONDANSETRON HCL INJ 2MG/ML 2ML 2 MG/ML VIAL IV STA (07:52)
[2024-09-30] MEDS: HYDROMORPHONE 1MG/1ML INJ IV STA (07:53)
[2024-09-30 08:15] LABS: CHOL/HDL RATIO 2.8 (3.0-3.6); LDL CHOLESTEROL 82.0 MG/DL (60-130)
[2024-09-30 08:18] LABS: EST GLOMERULAR FILTRATION RATE 37.0 ML/MIN (>=60); INR 0.87
[2024-09-30] MEDS ORDERED: PROMETHAZINE 12.5MG/ NACL 0.9% 12.5 MG/50 ML BAG IV PRN (09:30)
[2024-09-30] MEDS: HYDROMORPHONE 1MG/1ML INJ IV PRN (09:50)
[2024-09-30] MEDS: ONDANSETRON HCL INJ 2MG/ML 2ML 2 MG/ML VIAL IV PRN (09:52)
[2024-09-30] MEDS: MEROPENEM 1 GM in SODIUM CHLORIDE 0.9% 100 ML IV SCH (09:52)
[2024-09-30] MEDS: METRONIDAZOLE 500MG/NS 100ML 100 ML IV SCH (09:52)
[2024-09-30] MEDS: SODIUM CHLORIDE 0.9% 1000ML 1,000 ML IV SCH (09:56)
[2024-09-30] MEDS ORDERED: IOPAMIDOL 370 MG/ML 100 ML INFUS..BTL INJ ONE (10:24)
[2024-09-30] MEDS ORDERED: DEXTROSE 50% SYRINGE 50 ML IV PRN (22:30)
[2024-09-30] MEDS: LEVOTHYROXINE SODIUM 100 MCG/VIAL IV SCH (22:48)
[2024-09-30] MEDS: MAGNESIUM SULFATE 2GM/50ML IV ONE (23:23)
[2024-09-30] MEDS: INSULIN LISPRO 100 UNIT/1 ML 3ML VIAL SQ SCH (23:42)
[2024-10-01 03:27] VITALS: BP 119/64; PULSE 69; RESP 18; TEMP 98.1; O2SAT 95
[2024-10-01 05:34] LABS: BASOPHILS % 0.2 % (0.0-1.0); EOSINOPHILS % 0.1 % (0.0-6.0); LYMPHOCYTES % 5.6 % (18.0-39.1); MONOCYTES % 6.0 % (4.4-11.3); NEUTROPHILS % 87.4 % (38.7-80.0); RED CELL DISTRIBUTION WIDTH 14.9 % (11.7-14.4)
[2024-10-01 06:14] LABS: EST GLOMERULAR FILTRATION RATE 38.0 ML/MIN (>=60)
[2024-10-01 08:22] VITALS: BP 141/61; PULSE 86; RESP 19; TEMP 97.7; O2SAT 100
[2024-10-01 08:32] VITALS: BP 141/61; PULSE 86; RESP 19; TEMP 97.7; O2SAT 100
[2024-10-01 12:20] VITALS: BP 137/76; PULSE 82; RESP 20; TEMP 98.1; O2SAT 95
[2024-10-01 16:12] VITALS: BP 153/75; PULSE 56; RESP 19; TEMP 97.7; O2SAT 100
[2024-10-01 20:00] VITALS: BP 160/75; PULSE 84; RESP 18; TEMP 97.2; O2SAT 100
[2024-10-02] VITALS (9 sets, daily range): BP systolic 121–145; BP diastolic 61–91; PULSE 51–76; RESP 18–19; TEMP 97.4–98.6; O2SAT 97–100
[2024-10-02 02:55] LABS: % IRON SATURATION 20 % (15-50)
[2024-10-02 07:12] LABS: BASOPHILS % 0.2 % (0.0-1.0); EOSINOPHILS % 1.1 % (0.0-6.0); LYMPHOCYTES % 7.9 % (18.0-39.1); MONOCYTES % 7.8 % (4.4-11.3); NEUTROPHILS % 82.5 % (38.7-80.0); RED CELL DISTRIBUTION WIDTH 15.5 % (11.7-14.4)
[2024-10-02 07:44] LABS: EST GLOMERULAR FILTRATION RATE 52.0 ML/MIN (>=60)
[2024-10-03] VITALS (10 sets, daily range): BP systolic 129–154; BP diastolic 74–95; PULSE 54–84; RESP 18; TEMP 97.4–98.3; O2SAT 96–100
[2024-10-03] MEDS: ACETAMINOPHEN 325 MG TAB PO PRN (00:47)
[2024-10-03] MEDS: POTASSIUM CHLORIDE 10MEQ EA PO STA (00:48)
[2024-10-03 07:14] LABS: BASOPHILS % 0.4 % (0.0-1.0); EOSINOPHILS % 1.9 % (0.0-6.0); LYMPHOCYTES % 12.1 % (18.0-39.1); MONOCYTES % 8.7 % (4.4-11.3); NEUTROPHILS % 76.5 % (38.7-80.0); RED CELL DISTRIBUTION WIDTH 15.3 % (11.7-14.4)
[2024-10-03 07:49] LABS: EST GLOMERULAR FILTRATION RATE 62.0 ML/MIN (>=60)
[2024-10-03] MEDS: IRON SUCROSE 100 MG in SODIUM CHLORIDE 0.9% 100 ML IV SCH (08:50)
[2024-10-03] MEDS ORDERED: SODIUM CHLORIDE 0.9% 0 ML ONE (14:24)
[2024-10-04] VITALS (7 sets, daily range): BP systolic 113–149; BP diastolic 72–108; PULSE 67–104; RESP 18–20; TEMP 97.4–98.2; O2SAT 96–100
[2024-10-04] MEDS ORDERED: PROPOFOL IV EMULSION 10 MG/ML 20 ML VIAL ONE ×2 (11:58→13:27)
[2024-10-04] MEDS ORDERED: LIDOCAINE HCL 2% LOCAL INJ 5 ML SDV VIAL INJ ONE (11:58)
[2024-10-04] MEDS ORDERED: SUCCINYLCHOLINE CHLORIDE 20 MG/ML 10ML VIAL ONE (11:59)
[2024-10-04] MEDS ORDERED: ROCURONIUM BROMIDE 1 ML IV ONE (11:59)
[2024-10-04] MEDS ORDERED: FENTANYL CITRATE/PF 100MCG/2 ML INJ ONE (13:09)
[2024-10-04] MEDS ORDERED: SODIUM CHLORIDE 0.9% 100 ML ONE (21:36)
[2024-10-05] VITALS (10 sets, daily range): BP systolic 119–158; BP diastolic 62–99; PULSE 50–85; RESP 18–20; TEMP 97–98.2; O2SAT 92–100
[2024-10-05] MEDS ORDERED: LIDOCAINE HCL 2% LOCAL INJ 5 ML SDV VIAL INJ ONE (14:40)
[2024-10-05] MEDS ORDERED: FENTANYL CITRATE/PF 100MCG/2 ML INJ ONE (14:40)
[2024-10-05] MEDS ORDERED: SUCCINYLCHOLINE CHLORIDE 20 MG/ML 10ML VIAL ONE (14:41)
[2024-10-05] MEDS ORDERED: PROPOFOL IV EMULSION 10 MG/ML 20 ML VIAL ONE (14:41)
[2024-10-05] MEDS ORDERED: ROCURONIUM BROMIDE 1 ML IV ONE (14:41)
[2024-10-05] MEDS ORDERED: EPHEDRINE SULFATE INJ 50 MG/ML VIAL ONE (15:02)
[2024-10-05] MEDS ORDERED: SUGAMMADEX SODIUM 200 MG/2 ML VIAL IV ONE (15:02)
[2024-10-05] MEDS ORDERED: KETOROLAC TROMETHAMINE 30 MG/ML VIAL ONE (15:02)
[2024-10-05] MEDS ORDERED: METOPROLOL TARTRATE INJ 1 MG/ML VIAL ONE (15:09)
[2024-10-05] MEDS ORDERED: LACTATED RINGER'S 1,000 ML ONE (16:08)
[2024-10-06] VITALS (13 sets, daily range): BP systolic 125–158; BP diastolic 76–97; PULSE 60–94; RESP 17–19; TEMP 97.6–98.6; O2SAT 92–100
[2024-10-06 06:38] LABS: BASOPHILS % 0.1 % (0.0-1.0); EOSINOPHILS % 0.1 % (0.0-6.0); LYMPHOCYTES % 5.0 % (18.0-39.1); MONOCYTES % 4.6 % (4.4-11.3); NEUTROPHILS % 89.8 % (38.7-80.0); RED CELL DISTRIBUTION WIDTH 15.4 % (11.7-14.4)
[2024-10-06 06:56] LABS: EST GLOMERULAR FILTRATION RATE 65.0 ML/MIN (>=60)
[2024-10-06] MEDS ORDERED: HYDROMORPHONE 1MG/1ML INJ IV PRN (12:30)
[2024-10-07] VITALS (14 sets, daily range): BP systolic 122–158; BP diastolic 77–93; PULSE 69–92; RESP 16–20; TEMP 96.7–97.9; O2SAT 95–100
[2024-10-07 05:19] LABS: BASOPHILS % 0.3 % (0.0-1.0); EOSINOPHILS % 1.5 % (0.0-6.0); LYMPHOCYTES % 9.5 % (18.0-39.1); MONOCYTES % 7.9 % (4.4-11.3); NEUTROPHILS % 80.4 % (38.7-80.0); RED CELL DISTRIBUTION WIDTH 15.3 % (11.7-14.4)
[2024-10-07 05:44] LABS: PHOSPHORUS 1.7 MG/DL (2.3-4.7)
[2024-10-07 06:24] LABS: EST GLOMERULAR FILTRATION RATE 70.0 ML/MIN (>=60)
[2024-10-07] MEDS: INSULIN LISPRO 100 UNIT/1 ML 3ML VIAL SQ SCH (07:30)
[2024-10-07] MEDS: MAGNESIUM SULFATE 2GM/50ML IV SCH (09:22)
[2024-10-07] MEDS: POTASSIUM PHOSPHATE 20 MM in SODIUM CHLORIDE 0.9% 250ML 250 ML IV ONE (11:46)
[2024-10-07] MEDS: ENOXAPARIN SOD INJ 40 MG/0.4 ML SYR SC SCH (17:18)
[2024-10-08] VITALS (9 sets, daily range): BP systolic 145–160; BP diastolic 76–117; PULSE 72–92; RESP 14–20; TEMP 97.3–98.1; O2SAT 93–100
[2024-10-08 06:59] LABS: BASOPHILS % 0.5 % (0.0-1.0); EOSINOPHILS % 1.8 % (0.0-6.0); LYMPHOCYTES % 8.5 % (18.0-39.1); MONOCYTES % 7.8 % (4.4-11.3); NEUTROPHILS % 80.9 % (38.7-80.0); RED CELL DISTRIBUTION WIDTH 15.4 % (11.7-14.4)
[2024-10-08 07:20] LABS: PHOSPHORUS 2.4 MG/DL (2.3-4.7)
[2024-10-08 07:44] LABS: EST GLOMERULAR FILTRATION RATE 74.0 ML/MIN (>=60)
[2024-10-09] VITALS (11 sets, daily range): BP systolic 118–160; BP diastolic 85–103; PULSE 50–87; RESP 14–20; TEMP 97.4–98.6; O2SAT 95–100
[2024-10-09] MEDS: AMLODIPINE BESYLATE 5 MG TAB PO SCH (09:12)
[2024-10-09] MEDS: HYDRALAZINE HCL 20 MG/ML VIAL IV PRN (18:04)
[2024-10-10 03:03] VITALS: BP 139/99; PULSE 61; RESP 18; TEMP 97.6; O2SAT 100
[2024-10-10 07:40] VITALS: BP 152/69; PULSE 68; RESP 16; TEMP 97.4; O2SAT 100
[2024-10-10 07:50] VITALS: PULSE 67; RESP 16; O2SAT 98
[2024-10-10 08:00] VITALS: BP 152/69; PULSE 68; RESP 16; TEMP 97; O2SAT 100
[2024-10-10 11:17] VITALS: BP 136/83; PULSE 90; RESP 16; TEMP 98.6; O2SAT 100
[2024-10-10 15:30] VITALS: BP 156/84; PULSE 83; RESP 16; TEMP 98.3; O2SAT 100
[2024-10-10] MEDS ORDERED: LEVOTHYROXINE50 MC1 PO (18:22)
[2024-10-10] MEDS ORDERED: CEPHALEXIN500 MG PO (18:22)
[2024-10-10] MEDS ORDERED: ULTRAM 50MG50 MG PO (18:22)
[2024-10-10] MEDS ORDERED: PANTOPRAZOLE SO40 MG PO (18:22)
[2024-10-10] MEDS ORDERED: NORVASC5 MG PO (18:22)
== END 2024-10-10 19:31 | disposition home or self-care (01) | DRG 853 ==
LOC: ER 07:23 → ERHOLD 09:16 → MED/SURG3 12:03
PROVIDERS: ADMIT Internal Medicine; ATTEND Internal Medicine
PROC: 3E03329 Introduction of Other Anti-infective into Peripheral Vein, Percutaneous Approach (ICD-10-PCS; 2024-09-30)
PROC: 0F768DZ Dilation of Left Hepatic Duct with Intraluminal Device, Via Natural or Artificial Opening Endoscopic (ICD-10-PCS; 2024-10-04)
PROC: BF101ZZ Fluoroscopy of Bile Ducts using Low Osmolar Contrast (ICD-10-PCS; 2024-10-04)
PROC: 0FN44ZZ Release Gallbladder, Percutaneous Endoscopic Approach (ICD-10-PCS; 2024-10-05)
PROC: 0FT44ZZ Resection of Gallbladder, Percutaneous Endoscopic Approach (ICD-10-PCS; principal; 2024-10-05 14:43)
DX: A41.9 Sepsis, unspecified organism (principal); K80.67 Calculus of gallbladder and bile duct with acute and chronic cholecystitis with obstruction; K85.10 Biliary acute pancreatitis without necrosis or infection; I48.20 Chronic atrial fibrillation, unspecified; B17.9 Acute viral hepatitis, unspecified; N17.9 Acute kidney failure, unspecified; K82.8 Other specified diseases of gallbladder; B96.20 Unspecified Escherichia coli [E. coli] as the cause of diseases classified elsewhere; R19.7 Diarrhea, unspecified; E83.42 Hypomagnesemia; E86.0 Dehydration; E87.6 Hypokalemia; D50.9 Iron deficiency anemia, unspecified; I45.10 Unspecified right bundle-branch block; E87.8 Other disorders of electrolyte and fluid balance, not elsewhere classified; I10 Essential (primary) hypertension; E78.5 Hyperlipidemia, unspecified; E03.9 Hypothyroidism, unspecified; M10.9 Gout, unspecified; E11.9 Type 2 diabetes mellitus without complications; Z79.84 Long term (current) use of oral hypoglycemic drugs; E66.01 Morbid (severe) obesity due to excess calories; Z71.3 Dietary counseling and surveillance; Z68.30 Body mass index [BMI] 30.0-30.9, adult; Z71.81 Spiritual or religious counseling; Z79.899 Other long term (current) drug therapy; Z79.82 Long term (current) use of aspirin
CPT/HCPCS: 36415; 43260; 71045; 74177; 74181; 74328; 80048; 80053; 80061; 80076; 82105; 82550; 82607; 82746; 82948; 83036; 83540; 83690; 83735; 84100; 84443; 84466; 84484; 85025; 85045; 85610; 85730; 86301; 87040; 87071; 87186; 87205; 88304; 93005; 93306; 94799; 99284; C2625; J0330; J0360; J0690; J1171; J1650; J1756; J1885; J2003; J2185; J2405; J2470; J3475; J7030; J7050; Q9967